=== PATIENT | female | born 1975 | race Caucasian/White ===

== ENCOUNTER 2017-05-31 23:40 | Inpatient (IN) | payer MEDICAID ==
[~2017-05-31] VITALS: Ht 165.1 cm; Wt 117.9 kg
--- NOTE | 2017-05-31 23:40 | NUR ---
BIBA TO ER BED 4
[2017-05-31 23:46] VITALS: BP 108/61
--- NOTE | 2017-05-31 23:46 | NUR ---
41Y F BIBA C/O SOB TIME 1 AND A HALF WEEKS. PT ALSO STATED SHE WAS HAVING CP ON INSPIRATION, SO [facility] DELIVERED 4 TABS OF 81MG CHEWABLE ASPIRIN. PT AAOX4. LUNGS ARE CLEAR BITLAT. PT DENIES ANY N/V/D AT THE MOMENT
--- NOTE | 2017-06-01 00:53 | NUR ---
Patient being evaluated by physician at bedside.
[2017-06-01 01:59] LABS: HEMATOCRIT 45.3 % (36-48); HEMOGLOBIN 14.8 g/dL (12.0-16.0); MEAN CORPUSCULAR HEMOGLOBIN 29 pg (27-31); MEAN CORPUSCULAR HGB CONC 33 g/dL (33-37); MEAN CORPUSCULAR VOLUME 90 fL (80-94); PLATELET COUNT (AUTO) 103 K/uL (140-450); RED BLOOD CELL COUNT(AUTO) 5.05 MIL/uL (4.20-5.40); RED CELL DISTRIBUTION WIDTH 13.4 % (11.6-13.7); WHITE BLOOD COUNT (AUTO) 9.8 K/uL (4.8-10.8)
[2017-06-01 02:08] LABS: ALBUMIN 2.7 g/dL (3.4-5.0); ANION GAP 14.6 (8-16); CARBON DIOXIDE 22.7 mmol/L (21-32); POTASSIUM 3.3 mmol/L (3.5-5.1); TOTAL BILIRUBIN 0.8 mg/dL (0.0-1.0)
[2017-06-01 02:09] LABS: PROTHROMBIN TIME 15.4 secs (10.8-13.4)
[2017-06-01 02:11] LABS: EOSINOPHILS % (MANUAL) 1 % (0-4); LYMPHOCYTES % (MANUAL) 37 % (20-46); MONOCYTES % (MANUAL) 2 % (5-12)
[2017-06-01] MEDS ORDERED: ONDANSETRON 4 MG/2 ML VIAL IVP PRN (02:50)
[2017-06-01] MEDS ORDERED: ACETAMINOPHEN 325 MG TAB PO PRN (02:50)
[2017-06-01] MEDS ORDERED: LORazepam 2 MG/ML VIAL IVP PRN (02:50)
--- NOTE | 2017-06-01 03:34 | NUR ---
Patient will be admitted to care of DR HWANG. Admited to TELE 109B. Will go to room 109B. Belongings list completed. Report to LELIA GARCIA .
[2017-06-01] MEDS ORDERED: QUET300T1 PO (03:39)
[2017-06-01] MEDS ORDERED: [UNRECOGNIZED DRUG - CODE] PO (03:39)
[2017-06-01] MEDS ORDERED: [UNRECOGNIZED DRUG - CODE] PO (03:39)
[2017-06-01] MEDS ORDERED: PHEN100C3 PO (03:39)
[2017-06-01] MEDS ORDERED: ARIP20TA16 PO (03:39)
[2017-06-01] MEDS ORDERED: LAMO150T6 PO (03:39)
[2017-06-01 03:45] VITALS: BP 126/68
--- NOTE | 2017-06-01 03:45 | NUR ---
PATIENT ARRIVED IN THE UNIT FROM THE ED. PATIENT AMBULATORY BUT EXHIBITS SOB UPON EXERTION. NO COMPLAINTS OF PAIN AT THIS TIME. V/S WITHIN NORMAL LIMITS. PATIENT ON ROOM AIR, O2 SAT AT 94%. IV ACCESS NOTED ON RIGHT UPPER CHEST, SALINE LOCKED. PATIENT ON TELE MONITOR. SKIN IS INTACT. BED LOWEST POSITION, SIDE RAILS UP, AND CALL LIGHT WITHIN REACH. WILL CONTINUE TO MONITOR.
[2017-06-01] MEDS ORDERED: PNEUMOCOCCAL VACCINE 23 MCG/0.5 ML VIAL IMVAC SCH (04:20)
[2017-06-01] MEDS ORDERED: PNEUMOCOCCAL VACCINE 23 MCG/0.5 ML VIAL IMVAC PRN (04:40)
--- NOTE | 2017-06-01 05:30 | NUR ---
PATIENT IN BED, WATCHING TELEVISION. NO S/S OF DISTRESS NOTED
--- NOTE | 2017-06-01 07:29 | NUR ---
ENDORSED PLAN OF CARE TO MORNING RN. PATIENT HAS NO S/SX OF DISTRESS. PT IS IN STABLE CONDITION.
--- NOTE | 2017-06-01 07:30 | NUR ---
PT AWAKE AND ALERT, NO SIGNS OF ACUTE DISTRESS. BOWEL SOUNDS ACTIVE IN ALL 4 QUADRANTS. AMBULATORY WITH ASSIST. BOWEL AND BLADDER CONTINENCE. SKIN INTACT. PATIENT HAS PAIN 7/10 AT THIS TIME, WILL MEDICATE. IV PATENT AND ASYMPTOMATIC. BED IN LOW POSITION WITH BILATERAL HALF SIDE RAILS UP, CALL LIGHT WITHIN REACH. PADDED SIDE RAILS FOR SEIZURE PRECAUTIONS IN PLACE. RE-ORIENTED PATIENT TO HOSPITAL AND TO UNIT, PT VERBALIZED UNDERSTANDING. WILL CONTINUE TO MONITOR.
[2017-06-01 08:00] VITALS: BP 134/90
[2017-06-01] MEDS: SPIRONOLACTONE 25 MG TAB PO SCH (08:10)
[2017-06-01] MEDS: HYDROcodone/APAP 5/325 MG 1 TAB TAB PO PRN ×2 (08:10→16:27)
[2017-06-01] MEDS: CARVEDILOL 3.125 MG TAB PO SCH ×2 (08:10→21:20)
[2017-06-01] MEDS: LISINOPRIL 10 MG TAB PO SCH (08:10)
[2017-06-01 09:22] LABS: HEMATOCRIT 42.5 % (36-48); HEMOGLOBIN 14.1 g/dL (12.0-16.0); MEAN CORPUSCULAR HEMOGLOBIN 30 pg (27-31); MEAN CORPUSCULAR HGB CONC 33 g/dL (33-37); MEAN CORPUSCULAR VOLUME 90 fL (80-94); PLATELET COUNT (AUTO) 96 K/uL (140-450); RED BLOOD CELL COUNT(AUTO) 4.73 MIL/uL (4.20-5.40); RED CELL DISTRIBUTION WIDTH 13.4 % (11.6-13.7); WHITE BLOOD COUNT (AUTO) 8.3 K/uL (4.8-10.8)
--- NOTE | 2017-06-01 09:30 | NUR ---
PT SLEEPING, NO SIGNS OF ACUTE DISTRESS. BED IN LOW POSITION WITH BILATERAL HALF SIDE RAILS UP, CALL LIGHT WITHIN REACH. SEIZURE PRECAUTIONS AND SAFETY CHECKS IN PLACE. WILL CONTINUE TO MONITOR.
--- NOTE | 2017-06-01 09:33 | NUR ---
PATIENT HAS BEEN SCREENED AND CATEGORIZED HIGH NUTRITION RISK. PATIENT WILL BE SEEN WITHIN 1-2 DAYS OF ADMISSION. 06/01/17-06/02/[address]
[2017-06-01 09:39] LABS: ANION GAP 9.9 (8-16); POTASSIUM 3.9 mmol/L (3.5-5.1)
[2017-06-01 09:55] LABS: CREATINE KINASE MB 1.2 ng/mL (0-3.6)
[2017-06-01 10:03] LABS: EOSINOPHILS % (MANUAL) 5 % (0-4); LYMPHOCYTES % (MANUAL) 37 % (20-46); MONOCYTES % (MANUAL) 8 % (5-12)
--- NOTE | 2017-06-01 11:09 | NUR ---
CM NOTE PER REMEDY DEVELOPER BETH, REVIEWS SHOULD GO TO BOTH [facility] AND [facility]. FAXED INITIAL REVIEW TO [facility] [phone] PH [phone] AND TO [facility] [phone] PH [phone]
--- NOTE | 2017-06-01 11:53 | NUR ---
PT SLEEPING, NO SIGNS OF ACUTE DISTRESS. SAFETY CHECKS IN PLACE. WILL CONTINUE TO MONITOR.
[2017-06-01 12:00] VITALS: BP 109/74
--- NOTE | 2017-06-01 14:30 | NUR ---
PT RESTING COMFORTABLY IN BED, NO SIGNS OF ACUTE DISTRESS. WILL CONTINUE TO MONITOR.
[2017-06-01 16:00] VITALS: BP 101/56
[2017-06-01 18:17] LABS: CREATINE KINASE MB 1.1 ng/mL (0-3.6)
--- NOTE | 2017-06-01 19:12 | NUR ---
PT AWAKE AND ALERT, NO SIGNS OF ACUTE DISTRESS. ENDORSED TO NET SQL DEVELOPER NURSE FOR CONTINUITY OF CARE.
--- NOTE | 2017-06-01 19:30 | NUR ---
RECEIVED REPORT FROM AM NURSE. PT RESTING IN BED, AOX4, ABLE TO VERBALIZE NEEDS. TOP COLLAR MAKER IN PLACE. 2L O2 NC IN PLACE. PT DENIES SOB AT THIS TIME. PT C/O INTERMITTENT CHEST PAIN, PT DENIES PAIN MED, STATED SHE HAD ALREADY RECEIVED PAIN MEDICATIONS, WILL CONTINUE TO MONITOR. IV ACCESS ASYMPTOMATIC, PATENT AND INTACT. SALINE LOCKED. DISCUSSED AND REVIEWED PLAN OF CARE WITH PT. PT VERBALIZED UNDERSTANDING. ALL NEEDS MET. SAFETY MEASURES ENSURED. CALL LIGHT WITHIN REACH. WILL CONTINUE TO MONITOR.
[2017-06-01 20:00] VITALS: BP 104/68
[2017-06-01] MEDS: DOCUSATE SODIUM 100 MG GELCAP PO SCH (21:20)
--- NOTE | 2017-06-01 21:24 | NUR ---
ADMINISTERED DUE MEDICATIONS WITH EDUCATION. PT VERBALIZED UNDERSTANDING, TOLERATED WELL. PT REFUSING TO PUT ON 2L O2 DESPITE EDUCATION, STATING "I'LL PUT IT ON WHEN I WANT TO." SPO2 96%, RR 20, NO SOB OR S/S OF ACUTE DISTRESS. ALL NEEDS MET. SAFETY MEASURES ENSURED. CALL LIGHT WITHIN REACH. WILL CONTINUE TO MONITOR.
[2017-06-01] MEDS: MORPHINE SULFATE 2 MG/ML SYR IVP PRN (23:55)
[2017-06-02] VITALS: BP 115/65
--- NOTE | 2017-06-02 | NUR ---
PT C/O CHEST PAIN. SEE PAIN ASSESSMENT. ADMINISTERED MORPHINE IVP PRN WITH EDUCATION. PT VERBALIZED UNDERSTANDING, TOLERATED MED WELL. ALL NEEDS MET. SAFETY MEASURES ENSURED. CALL LIGHT WITHIN REACH. WILL CONTINUE TO MONITOR.
[2017-06-02 04:00] VITALS: BP 114/75
[2017-06-02] MEDS: MORPHINE SULFATE 2 MG/ML SYR IVP PRN ×2 (04:46→09:42)
--- NOTE | 2017-06-02 04:46 | NUR ---
PT C/O NAUSEA, ADMINISTERED ZOFRAN IVP PRN ORDERED. PROVIDED EMESIS BAG. PT C/O CHEST PAIN. SEE PAIN ASSESSMENT. ADMINISTERED MORPHINE IVP PRN ORDERED. PT TOLERATED MEDS WELL. ALL NEEDS MET. SAFETY MEASURES ENSURED. CALL LIGHT WITHIN REACH.
--- NOTE | 2017-06-02 07:17 | NUR ---
ENDORSED PLAN OF CARE TO AM NURSE. CONDITION STABLE.
--- NOTE | 2017-06-02 07:20 | NUR ---
MORNING REPORT RECEIVED FROM NIGHT NURSE, PT RESTING IN BED, CURRENTLY NO COMPLAINTS, SAFETY MEASURES ENSURED, CALL LIGHT WITHIN REACH, WILL MONITOR.
[2017-06-02 08:00] VITALS: BP 137/51
[2017-06-02] MEDS ORDERED: PSYLLIUM 12.2 GM/PKT PO SCH (09:00)
--- NOTE | 2017-06-02 09:30 | NUR ---
ENDORSED PLAN OF CARE TO AMANDA HUTCHINSON. PT REMAINS STABLE.
--- NOTE | 2017-06-02 09:30 | NUR ---
RECIEVED REPORT FROM RICHY pt sitting on her bed with her eyes open. Pt stable . V/S WNL. meds given johnny well.
--- NOTE | 2017-06-02 09:30 | NUR ---
Patient's Plan of Care was discussed and reviewed with METAL TEMPERER: JASPER
[2017-06-02] MEDS: SPIRONOLACTONE 25 MG TAB PO SCH (09:35)
[2017-06-02] MEDS: CARVEDILOL 3.125 MG TAB PO SCH (09:35)
--- NOTE | 2017-06-02 09:35 | NUR ---
PT RECEIVING MEDS FORM PILOT SUBMERSIBLE, PT STATED SHE HAD TO GO TO THE BATHROOM AND WANTED TO GET PAIN MEDS SOON POSSIBLE, EXPLAINED TO PATIENT PAIN MEDS ALREADY GIVEN AND WILL RETURN WITH PAIN MEDS WHEN TIME IS ALLOWED, PT VERBALIZED UNDERSTANDING. Addendum: 06/02/17 at 1418 by Jelena Adams RN DISREGARD WRONG TIME,
[2017-06-02] MEDS: DOCUSATE SODIUM 100 MG GELCAP PO SCH (09:37)
[2017-06-02] MEDS: LISINOPRIL 10 MG TAB PO SCH (09:38)
--- NOTE | 2017-06-02 09:43 | NUR ---
PT STATES CHEST PAIN 10/10, NON RADIATING, PT STATES PAIN FEELS THE SAME BEFORE, PT PLACED ON O2 NASAL CANNULA, VITALS BP 139/69, O2 SAT 96%, RR 18, P 82.
--- NOTE | 2017-06-02 09:55 | NUR ---
PT RECEIVING ORAL MEDS FROM COMMERCIAL UNDERWRITER, PT STATED SHE HAD TO GO TO THE BATHROOM AND WANTED TO GET PAIN MEDS SOON POSSIBLE, EXPLAINED TO PATIENT PAIN MEDS ALREADY GIVEN AND WILL RETURN WITH PAIN MEDS WHEN TIME IS ALLOWED, PT VERBALIZED UNDERSTANDING.
--- NOTE | 2017-06-02 10:08 | NUR ---
WAS NEXT DOOR TO PATIENT ROOM WHEN I HEARD A GRUNTING NOISE WENT TO PT ROOM WITH IVELISSE GARCIA PATIENT WAS ON THE FLOOR. PT WAS MOVING HER MOUTH BUT NOTHING WAS COMMING OUT PT WAS LETHARGIC PT WAS ABLE TO OPEN HER EYES. PT THE BECAME UNRESPONSIVE TO VERBAL STIMULI. RAPID RESPONSE WAS CALLED. Addendum: 06/02/17 at 2026 by Agency Kateryna WOOL AND PELT GRADER WOOL AND PELT GRADER DISREGARD ABOVE NOTES, MISSING ENTRY.
--- NOTE | 2017-06-02 10:08 | NUR ---
WAS NEXT DOOR TO PATIENT ROOM WHEN I HEARD A GRUNTING NOISE WENT TO PT ROOM WITH IVELISSE GARCIA. PATIENT WAS FOUND SITTING ON THE FLOOR. WAS TRYING TO PUT PT BACK IN BED BUT UNABLE TO DUE TO HER WEIGHT EVEN WITH 4 STAFF MEMBER AROUND. THEN PT WAS BECOMING LETHARGIC. PT WAS MOVING HER MOUTH BUT NOTHING WAS COMING OUT, PT WAS ABLE TO OPEN HER EYES.THEN SUDDENLY BECAME UNRESPONSIVE TO VERBAL STIMULI. RAPID RESPONSE WAS CALLED. ASSISTED PT TO LAY DOWN ON THE FLOOR TO PROPERLY ASSESS PT.
--- NOTE | 2017-06-02 10:08 | NUR ---
UPON ENTERING ROOM PT FOUND ON FLOOR, JASPER PATEL AND IVELISSE RN AT PT'S SIDE. UNABLE TO AROUSE PT. RAPID RESPONSE INITIATED. PT'S EYES OPEN AND MOVING MOUTH BUT UNABLE TO SPEAK. PT'S PULSE LOST, CODE BLUE CALLED.
--- NOTE | 2017-06-02 10:12 | NUR ---
called to pt's room for code blue pt was found on floor with cpr started pt bagged with 100% fio2 and cpr being done and acls drugs given in room at 1038 called end of kodi kamara
--- NOTE | 2017-06-02 10:30 | NUR ---
STAS ATTEMPTED TO CALL PT'S NEXT OF KIN (DON FRANCISCO, PT'S FRIEND), TO INFORM NEXT OF NEXT REGARDING THE CODE. VOICEMAIL MESSAGE LEFT.
--- NOTE | 2017-06-02 10:30 | NUR ---
STAS ATTEMPTED TO CALL PT'S NEXT OF KIN (FRANCISCO, DON, PT'S FRIEND), TO INFORM NEXT OF NEXT REGARDING THE CODE. NOBODY WAS PICKING UP THE PHONE AND NO VOICEMAIL TO LEAVE A MESSAGE. Addendum: 06/02/17 at 1339 by Allyson Groves RN DISREGARD ABOVE NOTES, WRONG ENTRY.
--- NOTE | 2017-06-02 10:38 | NUR ---
DR. Winifred SWANSON, EMERGENCY ROOM PHYSICIAN PRONOUNCED THE TIME OF . Addendum: 06/02/17 at 2017 by Allyson Groves RN DR. MALDONADO INSTEAD, NOT DR. SWANSON
--- NOTE | 2017-06-02 10:45 | NUR ---
DR. JAIDEN VAZQUEZ, AWAITING FOR CALL BACK.
--- NOTE | 2017-06-02 11:10 | NUR ---
CALLED [facility] AND SPOKE WITH RICHI. CASE#: [id number]
--- NOTE | 2017-06-02 11:15 | NUR ---
RADHA MENDOZA PAGED AGAIN AND CALLED BACK, DR. HWANG STATED HE IS ALREADY AWARE.
--- NOTE | 2017-06-02 11:20 | NUR ---
ATTEMPTED TO CALL PT'S NEXT OF KIN AGAIN (DON FRANCISCO, PT'S FRIEND [phone]), NOBODY WAS PICKING UP THE PHONE AND NO VOICEMAIL TO LEAVE A MESSAGE.
--- NOTE | 2017-06-02 11:30 | NUR ---
CALLED MOTOR BLOCK MECHANIC ([phone]), SPOKE WITH HIEN AND STATED SHE WILL CALL BACK.
--- NOTE | 2017-06-02 13:12 | NUR ---
CM NOTE FAXED CONCURRENT REVIEW TO [facility] [phone] PH [phone] AND TO [facility] [phone] PH [phone]
--- NOTE | 2017-06-02 13:20 | NUR ---
VINE PRUNER'S OFFICE CALLED AND SPOKE WITH MR. CAROL MARTIN. PT'S INFORMATION GIVEN, VINE PRUNER CASE NUMBER OBTAINED ([id number]). VINE PRUNER VERONICA STATED NOT A VINE PRUNER'S CASE AND WE CAN TAKE ALL THE TUBES OUT AND DO POST MORTEM CARE AND TO CALL MORTUARY. VINE PRUNER VERONICA ALSO PULLED OUT THE INFORMATION AND FOUND OUT 2 PHONE NUMBERS OF FAMILY MEMBERS: BENTLEY RACHEL- [phone], JUAN FRANCISCO RACHEL- [phone]. YUSEF GARCIADELINQUENT ACCOUNT CLERK, RUPINEDR DIETARY AID AND FAB DISTRIBUTOR OF DIRECTORIES MADE AWARE.
--- NOTE | 2017-06-02 14:15 | NUR ---
SS NOTE: I CALLED THE NUMBER LISTED FOR PT'S FRIEND, MELANIE FRANCISCO AND THE PERSON ANSWERED STATED THAT WE HAVE THE WRONG NUMBER. I WAS GIVEN TWO PHONE NUMBERS FROM THE BLOCK CUTTER PT'S POSSIBLE FAMILY MEMBERS. I CALLED BENTLEY RAMOS ([phone]) AND HE STATED THAT HE DOES NOT HAVE A SISTER NAMED RASHAD. I ALSO CALLED JUAN FRANCISCO RAMOS ([phone]) AND THE NUMBER IS OUT OF SERVICE. I SPOKE WITH DISPATCH FROM [place] [facility]. SHE STATED THAT PT'S ADDRESS IS [facility]. I SPOKE WITH RICHY FROM [facility] ([phone]) AND SHE STATED THAT THEY WILL SEND AN OFFICER TO PT'S ADDRESS.
--- NOTE | 2017-06-02 14:43 | NUR ---
SS NOTE: I SPOKE WITH GERSON FROM [facility] TO INQUIRE IF PT HAS ANY EMERGENCY CONTACTS LISTED. SHE STATED THAT PT DOES NOT. SHE ALSO STATED THAT PT HAS THE LAST NAME, MORNING, NOT RAMOS LISTED ON HER ID THAT SHE SHOWED THEM FOR HER APPTS. SHE REPORTED THAT PT CAME FROM A REHAB FACILITY CALLED [facility]. I SPOKE WITH HIEN FROM [facility] OPER[facility] OFFICE TO INQUIRE ABOUT THE NEXT STEP IF THERE IS NOT ANY FAMILY LOCATED FOR PT. SHE TRANSFERRED ME TO THE PUBLIC CATHODE BUILDER'S NUMBER ([phone]) AND I LEFT A MESSAGE.
--- NOTE | 2017-06-02 14:53 | NUR ---
SS NOTE: I SPOKE TO PABLO IN MEDICAL RECORDS AT [facility] ([phone]) TO SEE IF PT HAD AN EMERGENCY CONTACT LISTED DURING HER STAY THERE. SHE STATED THAT THEY RECENTLY SWITCHED TO ELECTRONIC RECORDS AND SHE DOES NOT HAVE ACCESS TO PT'S PAPER CHART.
--- NOTE | 2017-06-02 15:04 | NUR ---
TAISHA EDWARD SPOKE WITH [facility] TAISHA SUN PH [phone] EXT [phone] TO SEE IF PATIENT HAD AN EMERGENCY CONTACT LIST. HE SAID THAT THEY ONLY HAVE THE PATIENT'S HOME PH# [phone] ON THEIR FILE, WHICH IS THE SAME THE HOME PH# ON PATIENT'S FACESHEET. CALLED [facility] TAISHA Olson PH [phone] EXT [phone], WAITING FOR CALL BACK. TAMMY WORKMAN.
--- NOTE | 2017-06-02 15:12 | NUR ---
SS NOTE: I RECEIVED A CALL FROM DEPUTY CUMMINS ([phone]) AND HE STATED THAT HE WAS ABLE TO OBTAIN A PHONE NUMBER FOR PT'S FRIEND, MELANIE. I SPOKE WITH PT'S FRIEND, MELANIE ([phone]) AND SHE STATED THAT SHE WILL SEE IF SHE CAN GET A RIDE TO SEE PT. SHE ALSO STATED THAT SHE DOES NOT HAVE ANY FAMILY CONTACTS FOR PT.
--- NOTE | 2017-06-02 16:30 | NUR ---
THE 'S FRIEND DON FRANCISCO CAME. MADE AWARE OF THE NAME OF MORTUARY ([employer])THAT WILL ORNAMENTAL PAINTER AT 7 PM. DON ALSO SIGNED OUT PT'S BELONGINGS.
--- NOTE | 2017-06-02 16:45 | NUR ---
'S FRIEND DON FRANCISCO IN THE ROOM MAKING PHONE CALL, ATTEMPTED TO CONTACT 'S SIBLINGS. DON WAS TALKING TO A GENTLEMAN OVER THE PHONE I WALKED INTO THE ROOM, DON MENTIONED THAT'S THE BROTHER. DON SAID THE BROTHER LIVED 3 HOURS AWAY, WILL NOT BE ABLE TO MAKE IT TO THE HOSPITAL BEFORE LISA'S PULLER MACHINE TIME AT 1900. I GAVE LISA'S ADDRESS AND PHONE NUMBER TO THE PERSON OVER THE PHONE AND INFORMED HIM TO FOLLOW UP WITH LISA FOR ARRANGEMENT.
--- NOTE | 2017-06-02 17:47 | NUR ---
WILLY MORNING ( SISTER) CALLED AND ASKED INFORMATIONS OF THE MORTUARY( [employer]). WE CONTACTED FOR CONSTRUCTION ENGINEERING MANAGER. WILLY STATED SHE SPOKE WITH DON FRANCISCO EARLIER. WILLY MADE AWARE THAT DON TOOK THE BELONGINGS (CELL PHONE , WALLET AND CARDS).
--- NOTE | 2017-06-02 19:50 | NUR ---
[employer] CAME TO AUTOMOBILE RADIATOR MECHANIC THE BODY.
== END 2017-06-02 10:38 | disposition expired | DRG 194 ==
LOC: MED 23:40 → MTU 06-01 02:57
PROVIDERS: ADMIT Preventive Medicine Preventive Medicine/Occupational Environmental Medicine; ATTEND Preventive Medicine Preventive Medicine/Occupational Environmental Medicine
PROC: 5A12012 Performance of Cardiac Output, Single, Manual (ICD-10-PCS; principal; 2017-06-02)
PROC: 5A2204Z Restoration of Cardiac Rhythm, Single (ICD-10-PCS; 2017-06-02)
DX: I11.0 Hypertensive heart disease with heart failure (principal); I49.01 Ventricular fibrillation; E43 Unspecified severe protein-calorie malnutrition; J80 Acute respiratory distress syndrome; E87.0 Hyperosmolality and hypernatremia; K72.90 Hepatic failure, unspecified without coma; I50.43 Acute on chronic combined systolic (congestive) and diastolic (congestive) heart failure; I46.9 Cardiac arrest, cause unspecified; E11.65 Type 2 diabetes mellitus with hyperglycemia; E88.09 Other disorders of plasma-protein metabolism, not elsewhere classified; E83.51 Hypocalcemia; G40.909 Epilepsy, unspecified, not intractable, without status epilepticus; F31.9 Bipolar disorder, unspecified; F20.9 Schizophrenia, unspecified; B19.20 Unspecified viral hepatitis C without hepatic coma; E87.6 Hypokalemia; E83.52 Hypercalcemia; E87.5 Hyperkalemia; F17.210 Nicotine dependence, cigarettes, uncomplicated; Z68.41 Body mass index [BMI] 40.0-44.9, adult; Z79.899 Other long term (current) drug therapy
CPT/HCPCS: 36415; 71010; 80048; 80053; 81025; 82550; 82553; 82948; 83880; 84484; 85025; 85610; 85730; 87081; 92950; 93005; 99285; J2270; J2405; Q0092